=== PATIENT | male | born 1960 | race Caucasian/White ===

== ENCOUNTER 2022-06-15 12:48 | Observation (INO) | payer OTHER, SELFPAY ==
[2022-06-15 12:49] VITALS: BP 151/91; PULSE 77; RESP 17; TEMP 36.9; O2SAT 100; BMI 34.3
[2022-06-15 12:55] VITALS: PULSE 80; O2SAT 94
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
[2022-06-15 13:51] LABS: Add Manual Diff / Slide Review NO; Basophils Absolute Auto 100 /uL (0-100); Basophils Percent Auto 0.6 % (0-2); Eosinophils Absolute Auto 0 /uL (0-450); Eosinophils Percent Auto 0.3 % (2-4); Hematocrit 45.5 % (41-53); Hemoglobin 15.6 g/dL (13.5-17.5); Lymphocytes Absolute Auto 1400 /uL (1100-4500); Lymphocytes Percent Auto 11.1 % (25-40); Mean Corpuscular HGB Conc 34.2 % (30-36); Mean Corpuscular Hemoglobin 29.7 PG (26-34); Mean Corpuscular Volume 86.9 fL (80-100); Monocytes Absolute Auto 700 /uL (0-900); Monocytes Percent Auto 5.7 % (3-14); Neutrophils Absolute Auto 10100 /uL (1500-7000); Neutrophils Percent Auto 82.3 % (50-75); Platelet Count 177 X10^3/uL (150-400); Red Blood Cell Count 5.24 X10^6/uL (4.5-5.9); Red Cell Distribution Width 13.3 % (11.6-14.8); White Blood Cell Count 12.3 X10^3/uL (4.5-11.0)
[2022-06-15 14:00] VITALS: BP 145/90; PULSE 66; RESP 16; O2SAT 99
[2022-06-15] MEDS: TET,DIPH,PERTUSS(ACELL),VAC/PF 0.5 ML SYRINGE IM (14:07)
[2022-06-15 14:32] LABS: INR 1.1 (0.9-1.3); Prothrombin Time 12.9 SECONDS (10.1-12.7)
[2022-06-15 14:35] LABS: PTT Partial Thromboplastin Tim 29 SECONDS (26-36)
[2022-06-15 14:37] LABS: Alanine Aminotransferase 41 IU/L (<50); Albumin 4.2 g/dL (3.5-5.0); Albumin Globulin Ratio 1.3 (1.0-2.8); Alkaline Phosphatase 64 U/L (38-126); Aspartate Aminotransferase 39 IU/L (17-59); BUN Creatinine Ratio 19.8 (6-22); Bilirubin Total 0.5 mg/dL (0.2-1.3); Blood Urea Nitrogen 20 mg/dL (9-20); Calcium 9.1 mg/dL (8.4-10.2); Carbon Dioxide 26 mmol/L (22-32); Chloride 105 mmol/L (98-107); Creatine Kinase 306 U/L (55-170); Estimated Glomerular Filt Rate > 60 mL/min (>60); Ethanol (ETOH) < 10 mg/dL; Globulin 3.2 g/dL (1.7-4.1); Glucose 111 mg/dL (80-110); Lipase 45 U/L (23-300); Potassium 4.1 mmol/L (3.4-5.1); Sodium 141 mmol/L (137-145); Total Protein 7.4 g/dL (6.3-8.2)
[2022-06-15 14:48] LABS: Troponin I 0.044 ng/mL (0.01-0.034)
[2022-06-15 14:51] LABS: CKMB % Relative Index 0.5 % (1.5-5.0); Creatine Kinase MB 1.54 ng/mL (<2.37); HEMOLYSIS 18 (0-50)
[2022-06-15 15:00] VITALS: BP 142/85; PULSE 63; RESP 17; O2SAT 99
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
[2022-06-15 19:55] VITALS: BMI 34.3
[2022-06-15 20:45] VITALS: BP 147/80; PULSE 62; RESP 19; TEMP 37.1; O2SAT 96
[2022-06-15 20:53] LABS: COVID19 -Nasal RAPID Negative (Negative)
[2022-06-15] MEDS: HYDROMORPHONE 0.5 MG INJ IV (21:02)
[2022-06-15] MEDS: ACETAMINOPHEN 325 MG TABLET 650 MG PO (21:03)
[2022-06-15 22:35] LABS: Troponin I 0.038 ng/mL (0.01-0.034)
[2022-06-15 23:11] VITALS: BP 123/70; PULSE 69; RESP 18; TEMP 36.9; O2SAT 97
[2022-06-16] MEDS: IBUPROFEN 600 MG TABLET PO (00:04)
[2022-06-16] MEDS: HYDROMORPHONE 0.5 MG INJ IV (00:04)
[2022-06-16] MEDS: HYDROCODONE/ACET 5/325 TABLET 1 TAB PO (00:50)
[2022-06-16 04:00] VITALS: BP 109/65; PULSE 55; RESP 16; TEMP 36.5; O2SAT 96
[2022-06-16 07:45] LABS: Add Manual Diff / Slide Review NO; Basophils Absolute Auto 100 /uL (0-100); Basophils Percent Auto 0.7 % (0-2); Eosinophils Absolute Auto 100 /uL (0-450); Eosinophils Percent Auto 0.9 % (2-4); Hematocrit 42.6 % (41-53); Hemoglobin 14.5 g/dL (13.5-17.5); Lymphocytes Absolute Auto 1300 /uL (1100-4500); Lymphocytes Percent Auto 14.1 % (25-40); Mean Corpuscular HGB Conc 34.1 % (30-36); Monocytes Absolute Auto 900 /uL (0-900); Monocytes Percent Auto 9.8 % (3-14); Neutrophils Absolute Auto 6900 /uL (1500-7000); Neutrophils Percent Auto 74.5 % (50-75); Platelet Count 163 X10^3/uL (150-400); Red Blood Cell Count 4.83 X10^6/uL (4.5-5.9); Red Cell Distribution Width 13.6 % (11.6-14.8); White Blood Cell Count 9.3 X10^3/uL (4.5-11.0)
[2022-06-16 07:53] LABS: Alanine Aminotransferase 38 IU/L (<50); Albumin 4.1 g/dL (3.5-5.0); Albumin Globulin Ratio 1.3 (1.0-2.8); Alkaline Phosphatase 59 U/L (38-126); Aspartate Aminotransferase 33 IU/L (17-59); BUN Creatinine Ratio 22.1 (6-22); Bilirubin Total 0.9 mg/dL (0.2-1.3); Blood Urea Nitrogen 19 mg/dL (9-20); Calcium 8.7 mg/dL (8.4-10.2); Carbon Dioxide 28 mmol/L (22-32); Chloride 106 mmol/L (98-107); Estimated Glomerular Filt Rate > 60 mL/min (>60); Globulin 3.1 g/dL (1.7-4.1); Glucose 129 mg/dL (80-110); HEMOLYSIS < 15 (0-50); Potassium 3.8 mmol/L (3.4-5.1); Sodium 141 mmol/L (137-145); Total Protein 7.2 g/dL (6.3-8.2)
[2022-06-16 07:59] VITALS: BP 120/78; PULSE 54; RESP 17; TEMP 36.2; O2SAT 97
[2022-06-16] MEDS: SODIUM CHLORIDE 0.9% FLUSH 10 ML IV (08:12)
[2022-06-16] MEDS: ACETAMINOPHEN 325 MG TABLET 650 MG PO (08:16)
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
[2022-06-16 11:31] LABS: Troponin I 0.013 ng/mL (0.01-0.034)
[2022-06-16 11:56] VITALS: BP 127/68; PULSE 58; RESP 18; TEMP 36.8; O2SAT 95
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
--- NOTE | 2022-06-16 14:50 | PC.NURSE ---
Discharge reviewed with Sugar MARTINEZ and all questions were answered. Dr. Torres in to see Pt and recommended Pt contact his PCP for follow up MRI of his leg. Pt out via w/c to [facility] with Spouse and all belongings.
== END 2022-06-16 16:25 | disposition home or self-care (01) ==
LOC: ED 17:23 → AC 17:30
PROVIDERS: Admitting Provider Surgery; Emergency Provider Emergency Medicine; Referring Provider Emergency Medicine; Visit Provider Surgery
DX: S22.41XA Multiple fractures of ribs, right side, initial encounter for closed fracture (principal); S42.001A Fracture of unspecified part of right clavicle, initial encounter for closed fracture; S76.109A Unspecified injury of unspecified quadriceps muscle, fascia and tendon, initial encounter; V18.0XXA Pedal cycle driver injured in noncollision transport accident in nontraffic accident, initial encounter; Y93.55 Activity, bike riding; R77.8 Other specified abnormalities of plasma proteins; Z20.822 Contact with and (suspected) exposure to COVID-19; Z23 Encounter for immunization
CPT/HCPCS: 36415; 70450; 71045; 71260; 72125; 72170; 73000; 73560; 80053; 80320; 82550; 82553; 83605; 83690; 84484; 85025; 85610; 85730; 86850; 86900; 86901; 87635; 90471; 93005; 93010; 96374; 96376; 97116; 97162; 97530; 99224; 99285; C9803; G0378; 90715; J1170; Q9967